=== PATIENT | male | born 1975 | race Caucasian/White ===

== ENCOUNTER → 2025-05-26 08:00 | Outpatient (REF) | payer OTHER, SELFPAY | LOC: MRI 3T 08:00 | PROVIDERS: ATTENDING PHYSICIAN Orthopaedic Surgery; FAMILY PHYSICIAN Family Medicine; OTHER PHYSICIAN Specialist | DX: M25.561 Pain in right knee (principal); Z13.5 Encounter for screening for eye and ear disorders | CPT/HCPCS: 70030; 73721 ==